=== PATIENT | male | born 1990 | race Caucasian/White ===

== ENCOUNTER 2017-07-21 12:57 | Outpatient (RCR) | payer MEDICAID | END 2017-08-13 | LOC: M OUTALCOH 08-11 08:45 | DX: F11.20 Opioid dependence, uncomplicated (principal); F12.10 Cannabis abuse, uncomplicated; F17.200 Nicotine dependence, unspecified, uncomplicated ==

== ENCOUNTER 2017-08-15 11:04 | Outpatient (RCR) | payer MEDICAID | END 2017-09-10 | LOC: M OUTALCOH 11:04 | DX: F11.20 Opioid dependence, uncomplicated (principal); F12.10 Cannabis abuse, uncomplicated; F17.200 Nicotine dependence, unspecified, uncomplicated ==

== ENCOUNTER 2017-09-15 13:09 | Outpatient (RCR) | payer MEDICAID | END 2017-10-11 | LOC: M OUTALCOH 13:09 | DX: F11.20 Opioid dependence, uncomplicated (principal); F12.10 Cannabis abuse, uncomplicated; F17.200 Nicotine dependence, unspecified, uncomplicated ==

== ENCOUNTER 2017-10-17 13:00 | Outpatient (RCR) | payer MEDICAID | END 2017-11-10 | LOC: M OUTALCOH 10-20 09:19 | DX: F11.20 Opioid dependence, uncomplicated (principal); F12.10 Cannabis abuse, uncomplicated; F17.200 Nicotine dependence, unspecified, uncomplicated ==

== ENCOUNTER 2017-11-17 14:25 | Outpatient (RCR) | payer MEDICAID | END 2017-12-11 | LOC: M OUTALCOH 14:25 | DX: F11.20 Opioid dependence, uncomplicated (principal); F12.10 Cannabis abuse, uncomplicated; F17.200 Nicotine dependence, unspecified, uncomplicated ==

== ENCOUNTER 2017-12-15 10:37 | Outpatient (RCR) | payer MEDICAID | END 2018-01-10 | LOC: M OUTALCOH 12-22 16:00 | DX: F11.20 Opioid dependence, uncomplicated (principal); F12.10 Cannabis abuse, uncomplicated; F17.200 Nicotine dependence, unspecified, uncomplicated ==

== ENCOUNTER 2018-01-12 10:42 | Outpatient (RCR) | payer MEDICAID | END 2018-02-10 | LOC: M OUTALCOH 01-19 16:00 | DX: F11.20 Opioid dependence, uncomplicated (principal); F12.10 Cannabis abuse, uncomplicated; F17.200 Nicotine dependence, unspecified, uncomplicated ==

== ENCOUNTER 2018-12-29 07:43 | Emergency (ER) | payer MEDICAID, OTHER ==
[~2018-12-29] VITALS: Ht 170.2 cm; Wt 84.1 kg
[2018-12-29 07:43] VITALS: BP 11/70
[2018-12-29] MEDS ORDERED: METH10TA2 PO (07:48)
[2018-12-29] MEDS ORDERED: CEFA1TAB PO ×2 (09:16→09:27)
== END 2018-12-29 09:28 | disposition home or self-care (01) ==
LOC: M ED 07:43
DX: M79.645 Pain in left finger(s) (principal); W49.04XA Ring or other jewelry causing external constriction, initial encounter; Y92.9 Unspecified place or not applicable; Y93.9 Activity, unspecified; Y99.9 Unspecified external cause status; Z72.0 Tobacco use; Z79.899 Other long term (current) drug therapy

== ENCOUNTER 2019-12-26 14:02 | Emergency (ER) | payer OTHER ==
[~2019-12-26] VITALS: Ht 170.2 cm; Wt 79.5 kg
[~2019-12-26 14:02] MED LIST: CEFA1TAB PO; METH10TA2 PO
[2019-12-26] MEDS ORDERED: LIDOCAINE W/EPINEPHRINE 1% 20ML VIAL SC ONE (14:30)
[2019-12-26] MEDS ORDERED: KEFL500C17 PO (15:22)
--- NOTE | 2019-12-26 15:36 | REP ---
Two views right radius and ulna: 12/26/2019. Indication: Foreign body search. Pain following injury. Comparison: None. Findings: There is no acute fracture, subluxation or dislocation. No radiopaque foreign body is present. No lytic or blastic lesions are present. Impression: No acute fracture or radiopaque foreign body. Electronically Signed by Napoleon Johnson DO 12/26/2019 03:28 P
[2019-12-26 15:39] VITALS: BP 120/77
== END 2019-12-26 15:40 | disposition home or self-care (01) ==
LOC: M ED 14:02 → EDBD 14:02 → M ED 15:40
DX: S51.811A Laceration without foreign body of right forearm, initial encounter (principal); W13.4XXA Fall from, out of or through window, initial encounter; Y92.098 Other place in other non-institutional residence as the place of occurrence of the external cause; F17.210 Nicotine dependence, cigarettes, uncomplicated; Z79.2 Long term (current) use of antibiotics; Z79.891 Long term (current) use of opiate analgesic

== ENCOUNTER → 2020-08-10 | Outpatient (REF) | payer OTHER ==
[~2020-08-10] MED LIST changes: +KEFL500C17 PO
[2020-08-10 18:07] LABS: BASO % 0.5 % (0.0-1.0); EOS # 0.3 10^3/uL (0.0-0.5); EOS % 4.2 % (0.0-3.0); HEMATOCRIT 48.5 % (42.0-52.0); HEMOGLOBIN 16.1 g/dl (13.5-17.5); LYMPH % 39.9 % (24.0-44.0); MEAN CORPUSCULAR HEMOGLOBIN 29.2 pg (27.0-33.0); MEAN CORPUSCULAR HGB CONC 33.2 g/dl (32.0-36.5); MEAN CORPUSCULAR VOLUME 87.9 fl (80.0-96.0); MONO # 0.6 10^3/uL (0.0-0.8); MONO % 8.5 % (0.0-5.0); NEUTROPHILS # 3.5 10^3/uL (1.5-8.5); NEUTROPHILS % 46.6 % (36.0-66.0); PLATELET COUNT, AUTOMATED 219 10^3/uL (150-450); RED BLOOD COUNT 5.52 10^6/uL (4.30-6.10); WHITE BLOOD COUNT 7.4 10^3/uL (4.0-10.0)
[2020-08-10 18:41] LABS: ALBUMIN 4.1 GM/DL (3.2-5.2); ALT/SGPT 129 U/L (12-78); BILIRUBIN,TOTAL 0.4 MG/DL (0.2-1.0); BLOOD UREA NITROGEN 16 MG/DL (7-18); CALCIUM LEVEL 9.3 MG/DL (8.5-10.1); CARBON DIOXIDE LEVEL 30 MEQ/L (21-32); CHLORIDE LEVEL 102 MEQ/L (98-107); CHOLESTEROL LEVEL 183 MG/DL (<200); CHOLESTEROL RISK RATIO 3.734 (<5); CREATININE FOR GFR 0.95 MG/DL (0.70-1.30); GLOMERULAR FILTRATION RATE > 60.0 (>60); GLUCOSE, FASTING 86 MG/DL (70-100); HDL CHOLESTEROL 49 MG/DL (>40); LDL CHOLESTEROL 97 MG/DL (<100); NON-HDL-C 134 MG/DL; POTASSIUM SERUM 4.1 MEQ/L (3.5-5.1); SODIUM LEVEL 139 MEQ/L (136-145); TOTAL PROTEIN 7.8 GM/DL (6.4-8.2); TRIGLYCERIDES LEVEL 183 MG/DL (<150)
[2020-08-10 19:21] LABS: HIV 1&2 SCREEN CENTAUR NEGATIVE (NEGATIVE)
[2020-08-10 19:35] LABS: HEPATITIS C VIRUS ABY INDEX > 11.0 INDEX (<0.8)
== END ==
LOC: M LAB REF 16:08
PROVIDERS: ATTEND Family Medicine Addiction Medicine
DX: B18.2 Chronic viral hepatitis C (principal); Z68.25 Body mass index [BMI] 25.0-25.9, adult; F11.21 Opioid dependence, in remission

== ENCOUNTER → 2020-08-22 | Outpatient (REF) | payer OTHER | LOC: M LAB REF 16:18 | PROVIDERS: ATTEND Family Medicine Addiction Medicine | DX: B18.2 Chronic viral hepatitis C (principal) ==

== ENCOUNTER → 2020-09-22 | Outpatient (CLI) | payer MEDICAID, OTHER | LOC: M OUTALCOH 08:04 | PROVIDERS: ATTEND Psychiatry & Neurology Psychiatry | DX: Z13.9 Encounter for screening, unspecified (principal) ==

== ENCOUNTER 2020-10-10 15:00 | Outpatient (RCR) | payer MEDICAID | END 2020-10-11 | LOC: M OUTALCOH 15:00 | PROVIDERS: ATTEND Psychiatry & Neurology Psychiatry | DX: F11.20 Opioid dependence, uncomplicated (principal); F17.200 Nicotine dependence, unspecified, uncomplicated ==

== ENCOUNTER 2020-11-09 09:00 | Outpatient (RCR) | payer MEDICAID | END 2020-11-10 | LOC: M OUTALCOH 09:00 | PROVIDERS: ATTEND Psychiatry & Neurology Psychiatry | DX: F11.20 Opioid dependence, uncomplicated (principal); F17.200 Nicotine dependence, unspecified, uncomplicated ==

== ENCOUNTER 2020-12-06 13:46 | Outpatient (RCR) | payer MEDICAID | END 2020-12-11 | LOC: M OUTALCOH 13:46 | PROVIDERS: ATTEND Psychiatry & Neurology Psychiatry | DX: F11.20 Opioid dependence, uncomplicated (principal); F17.200 Nicotine dependence, unspecified, uncomplicated ==

== ENCOUNTER → 2021-01-10 | Outpatient (RCR) | payer MEDICAID | LOC: M OUTALCOH 12-13 16:00 | PROVIDERS: ATTEND Psychiatry & Neurology Psychiatry | DX: F11.20 Opioid dependence, uncomplicated (principal); F17.200 Nicotine dependence, unspecified, uncomplicated ==

== ENCOUNTER 2021-02-05 13:47 | Outpatient (RCR) | payer MEDICAID | END 2021-02-10 | LOC: M OUTALCOH 13:47 | PROVIDERS: ATTEND Psychiatry & Neurology Psychiatry | DX: F11.20 Opioid dependence, uncomplicated (principal) ==

== ENCOUNTER 2021-03-12 14:00 | Outpatient (RCR) | payer MEDICAID ==
[~2021-03-12 14:00] MED LIST changes: +METH-1177 PO; -METH10TA2 PO
== END 2021-03-13 ==
LOC: M OUTALCOH 14:00
PROVIDERS: ATTEND Psychiatry & Neurology Psychiatry
DX: F11.20 Opioid dependence, uncomplicated (principal)

== ENCOUNTER 2021-04-09 14:41 | Outpatient (RCR) | payer MEDICAID | END 2021-04-12 | LOC: M OUTALCOH 14:41 | PROVIDERS: ATTEND Psychiatry & Neurology Psychiatry | DX: F11.20 Opioid dependence, uncomplicated (principal) ==

== ENCOUNTER 2021-05-07 13:32 | Outpatient (RCR) | payer MEDICAID | END 2021-05-13 | LOC: M OUTALCOH 13:32 | PROVIDERS: ATTEND Psychiatry & Neurology Psychiatry | DX: F11.20 Opioid dependence, uncomplicated (principal) ==

== ENCOUNTER 2021-06-04 14:49 | Outpatient (RCR) | payer MEDICAID | END 2021-06-12 | LOC: M OUTALCOH 14:49 | PROVIDERS: ATTEND Psychiatry & Neurology Psychiatry | DX: F11.20 Opioid dependence, uncomplicated (principal) ==

== ENCOUNTER 2021-07-18 14:04 | Outpatient (RCR) | payer MEDICAID | END 2021-08-13 | LOC: M OUTALCOH 14:04 | PROVIDERS: ATTEND Psychiatry & Neurology Psychiatry | DX: F11.20 Opioid dependence, uncomplicated (principal) ==

== ENCOUNTER 2021-08-27 10:31 | Outpatient (RCR) | payer MEDICAID | END 2021-09-10 | LOC: M OUTALCOH 10:31 | PROVIDERS: ATTEND Psychiatry & Neurology Psychiatry | DX: F11.20 Opioid dependence, uncomplicated (principal) ==

== ENCOUNTER → 2021-09-06 | Outpatient (REF) | payer MEDICAID, OTHER | LOC: M LAB REF 13:47 | PROVIDERS: ATTEND Nurse Practitioner Family | DX: D22.4 Melanocytic nevi of scalp and neck (principal) ==

== ENCOUNTER 2021-10-09 14:04 | Outpatient (RCR) | payer MEDICAID | END 2021-10-11 | LOC: M OUTALCOH 14:04 | PROVIDERS: ATTEND Psychiatry & Neurology Psychiatry | DX: F11.20 Opioid dependence, uncomplicated (principal) ==

== ENCOUNTER 2021-11-27 14:46 | Outpatient (RCR) | payer MEDICAID | END 2021-12-11 | LOC: M OUTALCOH 14:46 | PROVIDERS: ATTEND Psychiatry & Neurology Psychiatry | DX: F11.20 Opioid dependence, uncomplicated (principal) ==

== ENCOUNTER → 2022-01-10 | Outpatient (RCR) | payer MEDICAID | LOC: M OUTALCOH 10:53 | PROVIDERS: ATTEND Psychiatry & Neurology Psychiatry | DX: F11.20 Opioid dependence, uncomplicated (principal) ==

== ENCOUNTER 2022-02-12 14:00 | Outpatient (RCR) | payer MEDICAID | END 2022-03-13 | LOC: M OUTALCOH 14:00 | PROVIDERS: ATTEND Psychiatry & Neurology Psychiatry | DX: F11.20 Opioid dependence, uncomplicated (principal) ==

== ENCOUNTER 2022-03-26 10:57 | Outpatient (RCR) | payer MEDICAID | END 2022-04-12 | LOC: M OUTALCOH 10:57 | PROVIDERS: ATTEND Psychiatry & Neurology Psychiatry | DX: F11.20 Opioid dependence, uncomplicated (principal) ==

== ENCOUNTER 2022-05-01 13:05 | Outpatient (RCR) | payer MEDICAID | END 2022-05-13 | LOC: M OUTALCOH 13:05 | PROVIDERS: ATTEND Psychiatry & Neurology Psychiatry | DX: F11.20 Opioid dependence, uncomplicated (principal) ==

== ENCOUNTER → 2023-10-01 | Outpatient (CLI) | payer OTHER, MEDICAID ==
[2023-10-01 10:43] LABS: BASO # 0.1 10^3/uL (0.0-0.2); BASO % 0.9 % (0.0-1.0); EOS # 0.2 10^3/uL (0.0-0.5); HEMATOCRIT 46.8 % (42.0-52.0); HEMOGLOBIN 15.6 g/dl (13.5-17.5); LYMPH # 3.1 10^3/uL (1.5-5.0); LYMPH % 39.3 % (24.0-44.0); MEAN CORPUSCULAR HGB CONC 33.3 g/dl (32.0-36.5); MONO # 0.5 10^3/uL (0.0-0.8); MONO % 6.6 % (2.0-8.0); NEUTROPHILS % 49.9 % (36.0-66.0); PLATELET COUNT, AUTOMATED 213 10^3/uL (150-450); RED BLOOD COUNT 5.38 10^6/uL (4.30-6.10); WHITE BLOOD COUNT 7.9 10^3/uL (4.0-10.0)
[2023-10-01 11:13] LABS: FREE T4 1.33 NG/DL (0.89-1.76); THYROID STIMULATING HORMONE 3.155 uIU/ML (0.55-4.78)
[2023-10-01 11:14] LABS: TESTOSTERONE 407 NG/DL (241-827)
[2023-10-01 11:20] LABS: ALBUMIN 4.3 G/DL (3.2-5.2); ALKALINE PHOSPHATASE 63 U/L (46-116); ALT/SGPT 30 U/L (7.0-40); AST/SGOT 27 U/L (<34); BILIRUBIN,TOTAL 0.5 MG/DL (0.3-1.2); BLOOD UREA NITROGEN 19 MG/DL (9-23); CALCIUM LEVEL 9.7 MG/DL (8.5-10.1); CARBON DIOXIDE LEVEL 28 MMOL/L (20-31); CHLORIDE LEVEL 106 MMOL/L (98-107); CHOLESTEROL LEVEL 186 MG/DL (<200); CHOLESTEROL RISK RATIO 4.22 (<5); CREATININE FOR GFR 1.02 MG/DL (0.70-1.30); GLOMERULAR FILTRATION RATE > 60.0 (>60); GLUCOSE, FASTING 85 MG/DL (60-100); LDL CHOLESTEROL 112.6 MG/DL (<100); POTASSIUM SERUM 4.9 MMOL/L (3.5-5.1); SODIUM LEVEL 143 MMOL/L (136-145); TOTAL PROTEIN 7.2 G/DL (5.7-8.2); TRIGLYCERIDES LEVEL 147 MG/DL (<150)
== END ==
LOC: M LAB 08:52
PROVIDERS: ATTEND Family Medicine
DX: E66.9 Obesity, unspecified (principal); Z68.31 Body mass index [BMI] 31.0-31.9, adult

== ENCOUNTER → 2024-01-12 | Outpatient (REF) | payer OTHER, MEDICAID ==
[2024-01-12 19:21] LABS: BASO # 0.1 10^3/uL (0.0-0.2); BASO % 0.9 % (0.0-1.0); EOS # 0.2 10^3/uL (0.0-0.5); EOS % 2.9 % (0.0-3.0); HEMATOCRIT 42.3 % (42.0-52.0); HEMOGLOBIN 14.7 g/dl (13.5-17.5); LYMPH # 2.6 10^3/uL (1.5-5.0); LYMPH % 37.6 % (24.0-44.0); MEAN CORPUSCULAR HEMOGLOBIN 29.9 pg (27.0-33.0); MEAN CORPUSCULAR HGB CONC 34.8 g/dl (32.0-36.5); MONO # 0.4 10^3/uL (0.0-0.8); NEUTROPHILS # 3.6 10^3/uL (1.5-8.5); NEUTROPHILS % 52.5 % (36.0-66.0); PLATELET COUNT, AUTOMATED 207 10^3/uL (150-450); RED BLOOD COUNT 4.92 10^6/uL (4.30-6.10); WHITE BLOOD COUNT 6.8 10^3/uL (4.0-10.0)
[2024-01-12 20:07] LABS: THYROID STIMULATING HORMONE 1.863 uIU/ML (0.55-4.78)
[2024-01-12 20:08] LABS: TESTOSTERONE 258 NG/DL (241-827)
[2024-01-12 20:11] LABS: ALBUMIN 4.3 G/DL (3.2-5.2); ALKALINE PHOSPHATASE 67 U/L (46-116); ALT/SGPT 23 U/L (7.0-40); AST/SGOT 25 U/L (<34); BILIRUBIN,TOTAL 0.5 MG/DL (0.3-1.2); BLOOD UREA NITROGEN 14 MG/DL (9-23); CALCIUM LEVEL 9.6 MG/DL (8.5-10.1); CARBON DIOXIDE LEVEL 25 MMOL/L (20-31); CHLORIDE LEVEL 104 MMOL/L (98-107); CHOLESTEROL LEVEL 184 MG/DL (<200); CHOLESTEROL RISK RATIO 4.11 (<5); CREATININE FOR GFR 0.85 MG/DL (0.70-1.30); GLOMERULAR FILTRATION RATE > 60.0 (>60); GLUCOSE, FASTING 81 MG/DL (60-100); HDL CHOLESTEROL 44.7 MG/DL (>40); LDL CHOLESTEROL 91.9 MG/DL (<100); NON-HDL-C 139.3 MG/DL; POTASSIUM SERUM 4.3 MMOL/L (3.5-5.1); SODIUM LEVEL 139 MMOL/L (136-145); TOTAL PROTEIN 7.1 G/DL (5.7-8.2); TRIGLYCERIDES LEVEL 237 MG/DL (<150)
== END ==
LOC: M LAB REF 16:45
PROVIDERS: ATTEND Family Medicine Addiction Medicine
DX: R53.81 Other malaise (principal); Z68.31 Body mass index [BMI] 31.0-31.9, adult; R68.82 Decreased libido

== ENCOUNTER → 2024-01-21 | Outpatient (REF) | payer OTHER, MEDICAID | LOC: M LAB REF 12:42 | PROVIDERS: ATTEND Family Medicine Addiction Medicine | DX: R89.1 Abnormal level of hormones in specimens from other organs, systems and tissues (principal) ==

== ENCOUNTER → 2025-01-18 | Outpatient (CLI) | payer OTHER, SELFPAY ==
[2025-01-18 16:23] LABS: ALT/SGPT 27 U/L (7.0-40); AST/SGOT 35 U/L (<34); CALCIUM LEVEL 10.2 MG/DL (8.5-10.1); CARBON DIOXIDE LEVEL 29 MMOL/L (20-31); CHLORIDE LEVEL 105 MMOL/L (98-107); CHOLESTEROL LEVEL 173 MG/DL (<200); CHOLESTEROL RISK RATIO 3.94 (<5); CREATININE FOR GFR 1.01 MG/DL (0.70-1.30); GLOMERULAR FILTRATION RATE > 90.0 (>60); LDL CHOLESTEROL 104.6 MG/DL (<100); NON-HDL-C 129.2 MG/DL; POTASSIUM SERUM 5.4 MMOL/L (3.5-5.1); SODIUM LEVEL 144 MMOL/L (136-145); TRIGLYCERIDES LEVEL 123 MG/DL (<150)
[2025-01-18 16:26] LABS: TESTOSTERONE 1183 NG/DL (241-827)
== END ==
LOC: M PLALAB 12:56
PROVIDERS: ATTEND Family Medicine Addiction Medicine
DX: R89.1 Abnormal level of hormones in specimens from other organs, systems and tissues (principal)